=== PATIENT | female | born 1955 | race American Indian/Alaskan Native ===

== ENCOUNTER 2019-04-15 08:14 | Outpatient (CLI) | payer MEDICAID ==
--- NOTE | 2019-04-15 09:06 | XRay Report ---
XR spine cervical 4-5V INDICATION / CLINICAL INFORMATION: M54.2 CERVICALGIA. COMPARISON: None available. FINDINGS: BONES/JOINT(S): No vertebral fracture. Moderate degenerative disc disease at C4-5, C5-6, and C6-7 wit h disc height loss and endplate osteophyte formation which appears to be most advanced at C4-5. Mild bilateral neural foraminal narrowing at C4-5 and C5-6 secondary to uncovertebral DJD. SOFT TISSUES: No significant abnormality. ADDITIONAL FINDINGS: None. Signer Name: Wes Buchanan MD Signed: 04/15/2019 9:02 AM Workstation Name: [id number]
--- NOTE | 2019-04-15 10:30 | Ultrasound Report ---
ULTRASOUND ABDOMEN, COMPLETE INDICATION: R10.10 UPPER ABDOMINAL PAIN, UNSPECIFIED. COMPARISON: No relevant prior imaging study available. FINDINGS: Pancreas: Not demonstrated. Abdominal Aorta: Not demonstrated . IVC: Not demonstrated. Liver: Increased hepatic echogenicity consistent with fatty infiltration. Gallbladder: Surgically absent. Bile ducts: No significant abnormality. Common bile duct measures 5 mm. Kidneys: Right: No significant abnormality. Left : No significant abnormality. Spleen: No significant abnormality. Free fluid: None. Additional Findings: None. IMPRESSION: 1. Suboptimal study. 2. Fatty liver. 3. No acute findings. Signer Name: Fabian Mir MD Signed: 04/15/2019 10:26 AM Workstation Name: [id number]
--- NOTE | 2019-04-15 10:31 | Mammography Report ---
DEXA BONE DENSITY SCAN INDICATION: POST MENOPAUSAL. TECHNIQUE: 2 site bone DEXA performed on an Hologic scanner. COMPARISON: None available. LUMBAR SPINE (L1-L4): Bone mineral density (BMD) is 1.193 g/cm2. T-score is 1.3 (standard deviations of Young Adult mean). Z-score is 2.1 (standard deviations of Age Matched mean). LEFT HIP: Bone mineral density (BMD) is 1.150 g/cm2. T-score is 1.7 (standard deviations of Young Adult mean). Z-score is 0.6 (standard deviations of Age Matched mean). IMPRESSION: WHO classification: Normal with average fracture risk a some both spine and left hip measurements. Signer Name: Fazal Taylor MD Signed: 04/15/2019 10:27 AM Workstation Name: [id number]
== END 2019-04-15 08:15 | disposition home or self-care (01) ==
LOC: US 08:14
PROVIDERS: ATTEND Internal Medicine
DX: Z13.820 Encounter for screening for osteoporosis (principal); K76.0 Fatty (change of) liver, not elsewhere classified; M50.323 Other cervical disc degeneration at C6-C7 level; M48.02 Spinal stenosis, cervical region; J44.9 Chronic obstructive pulmonary disease, unspecified; K21.9 Gastro-esophageal reflux disease without esophagitis; Z78.0 Asymptomatic menopausal state; Z90.89 Acquired absence of other organs
CPT/HCPCS: 72050; 76700; 77080